=== PATIENT | female | born 1985 | race Two or more races ===

== ENCOUNTER → 2019-12-22 | Outpatient (CLI) | payer OTHER ==
--- NOTE | 2019-12-22 15:17 | REP ---
REASON: Trauma to the right hand, 3rd digit. PRIORS: None. FINDINGS: The joint spaces are symmetric and relatively well maintained. There is no evidence of acute fracture or destructive osseous lesion. IMPRESSION: Negative. Electronically Signed by Brando Musa DO 12/22/2019 03:36 P
== END ==
LOC: M LRY 14:22
PROVIDERS: ATTEND Nurse Practitioner Family
DX: S69.91XA Unspecified injury of right wrist, hand and finger(s), initial encounter (principal); X58.XXXA Exposure to other specified factors, initial encounter; Y92.89 Other specified places as the place of occurrence of the external cause
CPT/HCPCS: 73130; G0463